=== PATIENT | female | born 2000 | race Caucasian/White ===

== ENCOUNTER 2019-09-14 18:20 | Outpatient (CLI) | payer OTHER, MEDICAID ==
[~2019-09-14] VITALS: Ht 165.1 cm; Wt 85.0 kg
--- NOTE | 2019-09-14 18:30 | NUR ---
ALDEN RUIZ presented to unit via ambulatory from ED, accompanied by mother and sister , with c/o VAGINAL BLEEDING AND PAIN. ALDEN RUIZ weighed, gowned, voided, and to bed. EFHM and TOCO applied, VS taken. LADEN RUIZ oriented to bed controls, call light, TV, heat, and A/C controls.
[2019-09-14 18:40] VITALS: BP 134/78
--- NOTE | 2019-09-14 18:56 | NUR ---
dr mcdonough called by this rn with pt report. pt is 34.1 wk per pt report, do not have records available. pt is no local, dr ledesma from [place] is her dr, pt is in town shopping today. pt CO lower right sided pain that started this am and light pink vaginal spotting that started at about 1730. pt states her dr did a procedure yesterday, burning off vaginal warts. No UC noted, have not had reactive fht strip yet, have not preformed SVE yet without order. light amount of light pink spotting visualized by this rn. Dr mcdonough gives order for rn to preform SVE. if pt closed, thick, and has same light pink discharge, pt may DC to home with a reactive fht strip. call dr if clots or heavy bleeding present.
[2019-09-14 19:24] VITALS: BP 134/78
--- NOTE | 2019-09-14 19:37 | NUR ---
Discharge packet given and explained, understanding voiced. pt ambulatory off unit at this time accompanied by self no ss distress.
--- NOTE | 2019-09-18 10:31 | Physician Query-Final Dx ---
MARISOL REECE 09/18/19 1031: Clinic Account Progress/Dx Physician Query: Please give diagnosis Please include # weeks gestation Date of Service Sep 14, 2019 at 18:20 OMAR DAVIS MD 09/19/19 0751: Clinic Account Progress/Dx DIAGNOSIS: Diagnosis 34 weeks gestation with false labor MARISOL REECE Sep 18, 2019 10:31 OMAR DAVIS MD Sep 19, 2019 07:51
== END 2019-09-14 19:37 | disposition home or self-care (01) ==
LOC: LDRP 18:20 → WSo 18:20
PROVIDERS: ATTEND Obstetrics & Gynecology
DX: O46.90 Antepartum hemorrhage, unspecified, unspecified trimester (principal); Z3A.00 Weeks of gestation of pregnancy not specified
CPT/HCPCS: 99213